=== PATIENT | male | born 1995 | race Two or more races ===

== ENCOUNTER 2025-08-18 16:10 | Emergency (ER) | payer BC ==
[2025-08-18] MEDS: Fluorescein 1 MG Ophth Strip EYEBOTH ONE (16:45)
[2025-08-18] MEDS: Tetracaine HCl/PF 0.5% 4 ML Bottle EYEBOTH ONE (16:45)
== END 2025-08-18 18:19 | disposition home or self-care (01) ==
LOC: MW.ED 16:10
DX: T55.1X2A Toxic effect of detergents, intentional self-harm, initial encounter (principal); T26.61XA Corrosion of cornea and conjunctival sac, right eye, initial encounter; Z79.899 Other long term (current) drug therapy; Y92.89 Other specified places as the place of occurrence of the external cause; Y93.89 Activity, other specified; Y99.0 Civilian activity done for income or pay
CPT/HCPCS: 99283; A9270; 99284; J3490